=== PATIENT | male | born 1955 | race Caucasian/White ===

== ENCOUNTER → 2016-08-22 | Outpatient (CLI) | payer BC ==
[~2016-08-22] MED LIST: ACET-1256 PO; ASPI81TA28 PO; CO Q10 PO; CRG125 PO; DICL-201 PO
[2016-08-22 13:41] LABS: ALT/SGPT 51 U/L (12-78); AST/SGOT 26 U/L (15-37); BLOOD UREA NITROGEN 14 mg/dl (7-18); CALCIUM 8.9 mg/dl (8.5-10.1); CARBON DIOXIDE 24 mmol/L (21-32); CHLORIDE 105 mmol/L (98-107); CHOLESTEROL 235 mg/dl (0-200); CREATININE 0.94 mg/dl (0.60-1.40); GLUCOSE 109 mg/dl (70-99); POTASSIUM 4.1 mmol/L (3.5-5.1); SODIUM 139 mmol/L (136-145); TRIGLYCERIDES 186 mg/dl (0-150); VERY LOW DENSITY LIPOPROT CALC 37 mg/dl
[2016-08-22 13:43] LABS: ESTIMATED AVERAGE GLUCOSE 111 mg/dl; HA1C FLAG Normal (Normal)
[2016-08-22 13:45] LABS: HDL CHOLESTEROL 39 mg/dl; LDL CHOLESTEROL CALCULATED 159 mg/dl
== END | disposition home or self-care (01) ==
LOC: C.LABMFLN 09:09
PROVIDERS: ATTEND Family Medicine
DX: E78.00 Pure hypercholesterolemia, unspecified (principal); I10 Essential (primary) hypertension; R73.03 Prediabetes

== ENCOUNTER → 2016-08-31 | Outpatient (CLI) | payer BC | END | disposition home or self-care (01) | LOC: C.LABMFLN 10:43 | PROVIDERS: ATTEND Family Medicine | DX: R39.15 Urgency of urination (principal) ==

== ENCOUNTER → 2016-11-22 | Outpatient (CLI) | payer BC ==
[2016-11-22 13:39] LABS: BASO % 0.7 %; BASO ABS # 0.03 K/uL (0-0.2); COMPLETE YES; HEMATOCRIT 41.9 % (42-52); IG% 0.2 %; LYMPH % 37.5 %; LYMPH ABS # 1.72 K/uL (1.2-3.4); MEAN CELL VOLUME 84.3 fL (80-100); MEAN CORPUSCULAR HEMOGLOBIN 28.6 pg (25-34); MEAN CORPUSCULAR HGB CONC 33.9 g/dl (32-36); MEAN PLATELET VOLUME 8.7 fL (7.4-10.4); MONO % 8.3 %; NEUT % 43.3 %; PLATELET COUNT 177 K/uL (130-400); RED BLOOD COUNT 4.97 M/uL (4.7-6.1); WHITE BLOOD COUNT 4.59 K/uL (4.8-10.8)
== END | disposition home or self-care (01) ==
LOC: C.LABMFLN 11:14
PROVIDERS: ATTEND Family Medicine
DX: R06.09 Other forms of dyspnea (principal)

== ENCOUNTER → 2016-12-11 | Outpatient (CLI) | payer BC ==
[2016-12-11 14:45] LABS: ESTIMATED AVERAGE GLUCOSE 108 mg/dl; HA1C FLAG Normal (Normal)
[2016-12-11 15:18] LABS: ALT/SGPT 46 U/L (12-78); BLOOD UREA NITROGEN 14 mg/dl (7-18); CALCIUM 9.1 mg/dl (8.5-10.1); CARBON DIOXIDE 27 mmol/L (21-32); CHLORIDE 104 mmol/L (98-107); CHOLESTEROL 226 mg/dl (0-200); GLUCOSE 107 mg/dl (70-99); POTASSIUM 3.9 mmol/L (3.5-5.1); SODIUM 139 mmol/L (136-145)
[2016-12-11 15:19] LABS: BUN/CREATININE RATIO 14.7 (10-20); CREATININE 0.96 mg/dl (0.60-1.40)
[2016-12-11 15:26] LABS: ALKALINE PHOSPHATASE 66 U/L (45-117); AST/SGOT 24 U/L (15-37); CHOLESTEROL/HDL RATIO 6.3; HDL CHOLESTEROL 36 mg/dl; LDL CHOLESTEROL CALCULATED 127 mg/dl; TRIGLYCERIDES 314 mg/dl (0-150); VERY LOW DENSITY LIPOPROT CALC 63 mg/dl
== END | disposition home or self-care (01) ==
LOC: C.LABMFLN 08:36
PROVIDERS: ATTEND Family Medicine
DX: I10 Essential (primary) hypertension (principal); E78.00 Pure hypercholesterolemia, unspecified; R73.03 Prediabetes

== ENCOUNTER → 2016-12-25 | Outpatient (CLI) | payer BC ==
[2016-12-25 14:58] LABS: LYME DISEASE AB IGG NEG (NEG); LYME DISEASE AB IGM NEG (NEG)
[2016-12-30 03:14] LABS: 18KDIGG BAND NONREACTIVE (NONREACTIVE); 23KDIGG BAND NONREACTIVE (NONREACTIVE); 23KDIGM BAND NONREACTIVE (NONREACTIVE); 28KDIGG BAND NONREACTIVE (NONREACTIVE); 30KDIGG BAND NONREACTIVE (NONREACTIVE); 39KDIGG BAND NONREACTIVE (NONREACTIVE); 39KDIGM BAND NONREACTIVE (NONREACTIVE); 41KDIGG BAND REACTIVE (NONREACTIVE); 41KDIGM BAND NONREACTIVE (NONREACTIVE); 45KDIGG BAND NONREACTIVE (NONREACTIVE); 58KDIGG BAND NONREACTIVE (NONREACTIVE); 66KDIGG BAND REACTIVE (NONREACTIVE); 93KDIGG BAND NONREACTIVE (NONREACTIVE)
== END | disposition home or self-care (01) ==
LOC: C.LABMFLN 09:44
PROVIDERS: ATTEND Family Medicine
DX: T14.8 Other injury of unspecified body region (principal); W57.XXXA Bitten or stung by nonvenomous insect and other nonvenomous arthropods, initial encounter

== ENCOUNTER → 2017-02-07 | Outpatient (CLI) | payer BC ==
[~2017-02-07] MED LIST changes: +PERFLUTREN LIPID MICROSPHERE (DEFINITY) IV ONE
--- NOTE | 2017-02-07 17:10 | ECHOCARDIOGRAM REPORT ---
*NOTICE TO RECEIVING [employer] This information is strictly Confidential and protected under [place] law. [place] law prohibits you from making any further disclosure of this information unless further disclosure is expressly permitted by the written consent of the person to whom it pertains or is authorized by law. A general authorization for the release of medical or other information is not sufficient for this purpose. Hospital accepts no responsibility if the information is made available to any other person, INCLUDING THE PATIENT. Interpretation Summary * Name: NANCY PEÑA Study Date: 02/07/2017 12:47 PM BP: 179/83 mmHg * Patient Location: [facility] HR: 68 * : 1955 (M/d/yyyy) Gender: Male Height: 70 in * Age: 61 yrs Ethnicity: CA Weight: 325 lb * Ordering Physician: Nancy Walton * Referring Physician: Nancy Walton * Performed By: Jose Raul Granado RCS * * Reason For Study: Dyspnea, Eval for Pulmonary Hypertension * BSA: 2.6 m2 * -- Conclusions -- * 1. Normal LV size and wall thickness. * 2. Normal LV systolic function. LVEF 55-60%. * 3. Normal RV size and function. * 4. No significant valvular pathology. * 5. Trace TR. Normal estimated PA and RA pressures. * 6. No prior studies for comparison. Procedure Details * A complete two-dimensional transthoracic echocardiogram was performed (2D, M-mode, Doppler and color flow Doppler). * A contrast injection of Definity was performed to improve assessment of LV function. * Contrast was injected into an intravenous site in the right arm. * One vial of Definity ultrasound contrast was diluted in normal saline to a total volume of 10 ml. A total of '2' ml of solution was administered during imaging. * Lot # [id number] of Definity utilized for procedure. * Expiration date [id number]. * The attending nurse who injected the contrast agent was Zuleyka Trivedi RN. Left Ventricle * The left ventricle is grossly normal size. * There is normal left ventricular wall thickness. * Ejection Fraction = 55-60%. Right Ventricle * The right ventricle is grossly normal size. * The right ventricular systolic function is normal as assessed by tricuspid annular plane systolic excursion (TAPSE) (normal >1.5 cm). Atria * The left atrial size is normal. * Right atrial size is normal. * No ASD detected; PFO is not assessed. Mitral Valve * The mitral valve is grossly normal. * There is mild mitral annular calcification. * There is no mitral valve stenosis. * Significant mitral regurgitation is absent. Tricuspid Valve * The tricuspid valve is not well visualized. * There is trace tricuspid regurgitation. * Right ventricular systolic pressure is normal. Aortic Valve * The aortic valve opens well. * No hemodynamically significant valvular aortic stenosis. * There is no significant aortic regurgitation. Pulmonic Valve * The pulmonary valve is inadequately visualized, but the Doppler data is adequate for interpretation. * There is no pulmonic valvular stenosis. * There is no significant pulmonary regurgitation. Great Vessels * The aortic root and proximal ascending aorta are normal sized. Pericardium/Pleural * There is no pericardial effusion. Great Vessels * Normal inferior vena cava size and collapsability with sniff indicates a normal right atrial pressure of 3 mmHg MMode 2D Measurements and Calculations IVSd 0.99 cm IVSs 1.4 cm LVIDd 4.6 cm LVIDs 3.1 cm LVPWd 10 cm LVPWs 1.4 cm IVS/LVPW 0.99 FS 32.7 % EDV(Teich) 99.7 ml ESV(Teich) 38.8 ml EF(Teich) 61.1 % EDV(cubed) 100.3 ml ESV(cubed) 30.6 ml EF(cubed) 69.5 % % IVS thick 42.9 % % LVPW thick 42.5 % LV mass(C)d 160.1 grams LV mass(C)dI 62.4 grams/m\S\2 LV mass(C)s 151.7 grams LV mass(C)sI 59.1 grams/m\S\2 CO(Teich) 3.8 l/min CI(Teich) 1.5 l/min/m\S\2 SV(Teich) 60.9 ml SI(Teich) 23.7 ml/m\S\2 CO(cubed) 4.4 l/min CI(cubed) 1.7 l/min/m\S\2 SV(cubed) 69.7 ml SI(cubed) 27.2 ml/m\S\2 Ao root diam 3.5 cm Ao root area 9.4 cm\S\2 ACS 1.5 cm LA dimension 3.9 cm asc Aorta Diam 3.4 cm LA/Ao 1.1 LVAd ap4 43.5 cm\S\2 LVLd ap4 9.6 cm EDV(MOD-sp4) 161.0 ml LVAs ap4 22.5 cm\S\2 LVLs ap4 7.4 cm ESV(MOD-sp4) 54.0 ml EF(MOD-sp4) 66.5 % LVAd ap2 39.9 cm\S\2 LVLd ap2 9.4 cm EDV(MOD-sp2) 137.0 ml LVAs ap2 23.8 cm\S\2 LVLs ap2 7.9 cm ESV(MOD-sp2) 57.0 ml EF(MOD-sp2) 58.4 % CO(MOD-sp4) 6.7 l/min CI(MOD-sp4) 2.6 l/min/m\S\2 SV(MOD-sp4) 107.0 ml SI(MOD-sp4) 41.7 ml/m\S\2 CO(MOD-sp2) 5.0 l/min CI(MOD-sp2) 2.0 l/min/m\S\2 SV(MOD-sp2) 80.0 ml SI(MOD-sp2) 31.2 ml/m\S\2 Doppler Measurements and Calculations MV E max opal 96.5 cm/sec MV A max opal 117.9 cm/sec MV E/A 0.82 MV P1/2t max opal 112.0 cm/sec MV P1/2t 99.3 msec MVA(P1/2t) 2.2 cm\S\2 MV dec slope 330.4 cm/sec\S\2 MV dec time 0.25 sec Ao V2 max 191.1 cm/sec Ao max PG 14.6 mmHg Ao max PG (full) 10.7 mmHg LV V1 max PG 3.9 mmHg LV V1 max 98.7 cm/sec PA V2 max 97.9 cm/sec PA max PG 3.9 mmHg TR max opal 171.2 cm/sec
== END | disposition home or self-care (01) ==
LOC: C.CPL 12:28
PROVIDERS: ATTEND Internal Medicine Pulmonary Disease
DX: G47.33 Obstructive sleep apnea (adult) (pediatric) (principal); I10 Essential (primary) hypertension; R06.09 Other forms of dyspnea

== ENCOUNTER → 2017-02-26 | Outpatient (CLI) | payer BC ==
[~2017-02-26] MED LIST changes: -PERFLUTREN LIPID MICROSPHERE (DEFINITY) IV ONE
[2017-02-26 18:07] LABS: BLOOD UREA NITROGEN 15 mg/dl (7-18)
== END | disposition home or self-care (01) ==
LOC: C.LABMFLN 11:40
PROVIDERS: ATTEND Physician Assistant
DX: R25.1 Tremor, unspecified (principal)

== ENCOUNTER → 2017-03-01 | Outpatient (CLI) | payer BC ==
[~2017-03-01] MED LIST changes: +GADAVIST IV PRN
--- NOTE | 2017-03-01 11:58 | DIAGNOSTIC IMAGING REPORT ---
ORBIT RADIOGRAPHS 3 VIEWS HISTORY: pre-MRI screening. COMPARISON: None. FINDINGS: There are no radiopaque foreign bodies identified within the orbits. IMPRESSION: No radiopaque foreign bodies identified within the orbits. Electronically signed by: Jason Tang M.D. 03/01/2017 11:56 AM Dictated Date/Time: 03/01/2017 11:56 AM
--- NOTE | 2017-03-01 14:30 | DIAGNOSTIC IMAGING REPORT ---
Brain MRI WITH AND WITHOUT CONTRAST HISTORY: Trauma. TECHNIQUE: Multiplanar multisequence MRI of the brain was performed both before and after the intravenous administration of contrast. COMPARISON STUDY: None. FINDINGS: There is no mass, hematoma, midline shift, or acute infarct. The paranasal sinuses are clear. The mastoid air cells are clear. The ventricles and sulci demonstrate mild age-related involutional changes. A few scattered foci of T2 hyperintensity seen within the periventricular and subcortical white matter are nonspecific. The major vascular flow voids at the skull base are well-maintained. Incidental note is made of a 5 mm pineal gland cyst. No abnormal enhancement. IMPRESSION: No acute intracranial abnormality. Scattered foci of T2 hyperintensity seen within the periventricular and subcortical white matter are nonspecific but favor mild microvascular ischemic change. A demyelinating disease, Lyme disease, or vasculitis could also have a similar appearance. Electronically signed by: Srinivas Chauhan M.D. 03/01/2017 2:28 PM Dictated Date/Time: 03/01/2017 2:19 PM
== END | disposition home or self-care (01) ==
LOC: C.MRIBC 11:20
PROVIDERS: ATTEND Physician Assistant
DX: R25.1 Tremor, unspecified (principal); Z87.828 Personal history of other (healed) physical injury and trauma

== ENCOUNTER → 2017-03-01 | Outpatient (CLI) | payer BC ==
[~2017-03-01] MED LIST changes: -GADAVIST IV PRN
--- NOTE | 2017-03-01 14:22 | DIAGNOSTIC IMAGING REPORT ---
MRI OF THE LUMBAR SPINE WITHOUT CONTRAST CLINICAL HISTORY: Severe lower back pain radiating into left hip. Lumbar radiculopathy. COMPARISON STUDY: No previous studies for comparison. TECHNIQUE: Utilizing a 1.5 Courtney magnet and dedicated coil, multiplanar, multiecho imaging of the lumbar spine was performed without IV contrast. FINDINGS: For purposes of numbering on this exam, the L5-S1 disc space is assigned to axial image 23 of 25. Alignment of the lumbar spine is anatomic. Vertebral body heights are maintained. No intracanalicular mass or fluid collection is present. Conus terminates at the upper L2 level. Note is made of marked marrow edema within the inferior endplate of L2 and superior endplate of L3. There is fluid signal within the left aspect of the L2-L3 intervertebral disc. There is no prevertebral edema. Paravertebral soft tissues appear normal. There is asymmetric atrophy of the right psoas. L1-2: The central canal and neural foramen are patent. L2-3: There is disc space narrowing with disc bulge, ligamentous hypertrophy and facet arthrosis. There is mild narrowing of the central canal and moderate narrowing of the left neural foramen. L3-4: There is disc space narrowing with disc bulge, ligamentous hypertrophy and facet arthrosis. There is moderate narrowing of the central canal and left neural foramen with mild narrowing of the right neural foramen. L4-5: There is disc bulge with ligamentous hypertrophy and facet arthrosis. There is mild narrowing of the central canal, lateral recesses and neural foramen. L5-S1: There is facet arthrosis. Central canal is patent. There is moderate right and mild left neural foraminal stenosis. IMPRESSION: 1. Marked marrow signal abnormality centered on the left aspect of the L2-L3 intervertebral disc with small amount of fluid within the disc space. No prevertebral edema. A degenerative process is favored although early discitis/osteomyelitis could appear similar. This could be correlated with clinical evidence for infectious process. A short-term follow-up MRI of the lumbar spine could be obtained. No epidural fluid collection. No paravertebral infiltration or fluid collection. 2. Moderate multilevel degenerative disc disease and severe multilevel facet arthrosis. Moderate central canal stenosis at L3-L4 with moderate multilevel neural foraminal narrowing, as described above. Electronically signed by: Jason Tang M.D. 03/01/2017 2:21 PM Dictated Date/Time: 03/01/2017 2:07 PM
== END | disposition home or self-care (01) ==
LOC: C.MRIBC 11:25
PROVIDERS: ATTEND Pain Medicine Interventional Pain Medicine
DX: M51.16 Intervertebral disc disorders with radiculopathy, lumbar region (principal); M51.17 Intervertebral disc disorders with radiculopathy, lumbosacral region

== ENCOUNTER → 2017-03-05 | Outpatient (CLI) | payer BC ==
--- NOTE | 2017-03-06 06:15 | PAP/PSG TECHNICIAN REPORT ---
[facility] Application Integration Engineer Polysomnogram Report Study name: None Report date: 03/06/2017 Study date: 03/05/2017 Referring Physician: DR. COSTELLO Name: NANCY PEÑA Interpreting Physician: Uche Novoa M.D. Date of : 1955 Application Integration Engineer: JOSE ARMANDO Lord. Sex: Male Age: 61 StudyType: PSG PAP Weight: 329 lbs Height: 61 years, Height 5' 8.5" BMI: 49.29 Medications: METOPROLOL TARTRATE 50 MG, CIALIS 5 MG, COENZYME Q10 100 MG, TAMSULOSIN HCL 0.4 MG, XARELTO 20 MG, ACETAMINOPHEN 500 MG Patient History PATIENT HAS HISTORY OF YARY AND LAST HAD A SLEEP STUDY DONE IN 2014. HE HAS BEEN HAVING ISSUES WITH DAYTIME SLEEPINESS AND FATIGUE. HE IS HERE TODAY FOR AN UPDATE ON HIS PRESSURE. ESS = 8 RM 7 Parameters Monitored NPSG: E1-M2, E2-M1, Fp1-M2, Fp2-M1, F3-M2, F4-M2, F4-M1, C3-M2, C4-M2, C4-M1, O1-M2, O2-M2, O2-M1, T3-M2, T4-M1, P3-M2, P4-M1, CHIN1, CHIN2, HR, EKG, Legs, PFLOW, SNOR, FLOW, CFLOW, Tidal Volume, THOR, ABDO, SpO2, PLTH, CPRESS, ETCO2 Wave, ETCO2, pH Sleep Architecture Sleep Stages Time at Lights Off 10:30:19 PM STAGES Time (min.) TST (%) Time at Lights On 5:31:49 AM Wake 85.5 -- Total Recording Time (TRT) 422.00 min. N1 36.5 11 Total Sleep Period (TSP) 408.0 min. N2 244.0 73 Total Sleep Time (TST) 336.0min. N3 4.0 1 Awake Time 85.5 min. REM 51.5 15 Wake after Sleep Onset 73.0 min. Sleep Efficiency (SE) 80 % Sleep Onset Latency (NIA) 12.5 min. Number of Stage 1 Shifts None Awakenings 35 Stage Changes 116 Number of REM periods 3 REM 51.5 15 REM Latency 82.5 min. NREM 284.5 85 Body Position Analysis Supine Right Left Side Prone Vertical Total Sleep Time (min.) 421.5 0.0 0.0 0.00 0.0 0.0 Total Sleep Time (%) 100% 0% 0% 0 0% N/A% Total Sleep Time REM (min.) 51.5 0.0 0.0 None 0.0 0.0 Total Sleep Time NREM (min.) 284.5 0.0 0.0 None 0.0 0.0 Intermittent Wake (min.) 85.5 0.0 0.0 None 0.0 0.0 Total Sleep Period (%) 100% None None None None None Arousals Myoclonus (PLM) * Events Count Index Events Count Index Spontaneous 46 8 Events Awake (PLMW) 8 5.6 Respiratory 12 2.1 Events Asleep w/ Arousal (PLMA) 1 0.2 PLM 1 0 Events Asleep w/o Arousal (PLMS) 20 3.6 Snoring 8 1 Total Asleep 21 3.8 Total 66 12 Total 29 4 Respiratory Analysis * CA OA MA CH H RERA Total Count 0 0 0 0 19 14 19 Index 0.0 0.0 0.0 0 3.4 3 5.9 Mean Duration 0.0 0.0 0.0 0.00 18.9 15.3 17.4 Longest Duration 0.0 0.0 0.0 0.00 0.0 18.4 30.3 Respiratory Event Summary Total Supine ~Supine Right Left Prone REM NREM Apneas Count 0 0 N/A N/A N/A N/A 0 0 Index 0.0 0 N/A N/A N/A N/A 0 0 Hypopneas (4% Desat) Count 19 19 N/A N/A N/A N/A 11 8 Index 3.4 3.4 N/A N/A N/A N/A 12.8 1.7 Apneas & All Hypopneas Count 19 19 N/A N/A N/A N/A 11 8 Index 3.4 3 N/A N/A N/A N/A 12.8 1.7 Respiratory Events (Rail Switchman+All Hyp+RERA) Count 19 33 N/A N/A N/A N/A 11 8 Index 5.9 6 N/A N/A N/A N/A 12.8 4.6 Respiratory Related Arousal Count 12 33 N/A N/A N/A N/A 0 12 Index 2.1 2 N/A N/A N/A N/A 0 3 Snoring Analysis Supine Right Left Prone REM NREM Total Snore duration 2.3 min Snores count 101 N/A N/A N/A 2 99 101 Snore mean duration 1.3 Sec Snores index 18 N/A N/A N/A 2.3 20.9 18.0 TST with snoring (%) 0.7% Desaturation Event Summary: Minimum %SpO2 Event Count Mean/Min/Max Duration(sec.) Desaturation Index % Time In Bed > 90 23 31.5 / 10.8 / 64.1 3.5 93.7 86 - 90 1 27.6 / 27.6 / 27.6 2.3 6.2 81 - 85 0 N/A 0.0 0.1 76 - 80 0 N/A 0.0 0.0 71 - 75 0 N/A 0.0 0.0 66 - 70 0 N/A 0.0 0.0 61 - 65 0 N/A 0.0 0.0 56 - 60 0 N/A 0.0 0.0 51 - 55 0 N/A 0.0 0.0 < 50 0 N/A 0.0 0.0 Total REM NREM Awake <50% 0.0 min. 0.0 min. 0.0 min. 0.0 min. 51 - 60% 0.0 min. 0.0 min. 0.0 min. 0.0 min. 61 - 70% 0.0 min. 0.0 min. 0.0 min. 0.0 min. 71 - 80% 0.0 min. 0.0 min. 0.0 min. 0.0 min. 81 - 90% 26.7 min. 8.1 min. 16.6 min. 2.1 min. 91 - 100% 394.7 min. 43.4 min. 267.9 min. 83.3 min. Average 92 92 92 93 Minimum SpO2 83 83 87 89 Desaturation Event Index 3.4 12.8 1.9 2.8 # Desat. Events below 89% 8 6 2 N/A Time(%) with Saturation below 89% 0.7 0.6 0.1 0.0 Time(min.) with Saturation below 89% 2.8 2.5 0.3 0.0 Time (mins) REM (mins) NREM (mins) % of TST SpO2 Below 90% 17 8 N9 1.7 SpO2 Below 88% 5 0 0 0 Heart Rate Analysis Min (bpm) Max (bpm) Average (bpm) Awake 51 85 61 NREM 50 92 58 REM 53 67 60 Overall 50 92 58 Supplemental O2 Values Minimum O2 level: None Value Start Time End Time Application Integration Engineer Comments Mr. Peña slept in the supine positions. PVC's noted. Leg movements noted. No bruxism noted. CPAP was initiated at +5 CMH2O and up-titrated to an optimal level of +13 CMH2O, which nearly eliminated all respiratory events and snoring. The patient brought in hiw own mask that was used during titration Mr. Peña awoke to use the restroom 0 times during the night. Mr. Peña stated I slept as well as I do when I am in my own bed. The final report will be interpreted and signed by a sleep physician. The completed physician report will then be placed in the patient medical record. Therapy Event: Therapy (cm H20) 5 7 8 9 10 11 12 13 Total Time at Pressure (min.) 0.8 26.6 9.0 64.8 3.8 21.2 48.4 246.9 TST at Pressure (min.) 0.0 10.3 9.0 57.8 3.8 17.2 45.9 191.9 # Periods 1 1 1 1 1 1 1 1 Sleep Onset (min.) N/A 11.7 0.0 0.0 0.0 0.0 0.0 0.0 REM Onset (min.) N/A N/A N/A 58.6 0.0 0.0 N/A 40.9 Sleep Efficiency % 0 38 100 89 100 81 94 77 Wakefulness (%) 100.0 61.1 0.0 10.8 0.0 18.9 5.2 22.3 Wakefulness (min.) 0.8 16.2 0.0 7.0 0.0 4.0 2.5 55.0 NREM 1 (%) 0.0 13.2 5.5 1.5 0.0 7.1 2.1 11.7 NREM 1 (min.) 0.0 3.5 0.5 1.0 0.0 1.5 1.0 29.0 NREM 2 (%) 0.0 25.7 94.5 72.0 0.0 31.4 92.8 52.8 NREM 2 (min.) 0.0 6.8 8.5 46.6 0.0 6.7 44.9 130.4 NREM 3 (%) 0.0 0.0 0.0 6.2 0.0 0.0 0.0 0.0 NREM 3 (min.) 0.0 0.0 0.0 4.0 0.0 0.0 0.0 0.0 REM (%) 0.0 0.0 0.0 9.5 100.0 42.6 0.0 13.2 REM (min.) 0.0 0.0 0.0 6.2 3.8 9.0 0.0 32.5 # Arousals N/A 6 6 4 0 0 4 46 Arousal Index N/A 34.8 39.9 4.2 0.0 0.0 5.2 14.4 # Snore N/A 4 3 21 1 1 18 53 Snore Index N/A 23.2 19.9 21.8 15.6 3.5 23.5 16.6 AHI N/A 17.4 13.3 5.2 46.8 10.5 0.0 0.9 AHI Supine N/A 17.4 13.3 5.2 46.8 10.5 0.0 0.9 AHI Non-Supine N/A N/A N/A N/A N/A N/A N/A N/A NREM AHI N/A 17.4 13.3 2.3 N/A 0.0 0.0 0.4 REM AHI N/A N/A N/A 29.3 46.8 20.0 N/A 3.7 RDI N/A 34.8 19.9 5.2 46.8 10.5 5.2 2.8 # Obstructive N/A 0 0 0 0 0 0 0 # Central Ap N/A 0 0 0 0 0 0 0 # Mixed N/A 0 0 0 0 0 0 0 # Hypopneas N/A 3 2 5 3 3 0 3 RERAS N/A 3 1 0 0 0 4 6 Total Respiratory Events N/A 6 3 5 3 3 4 9 Time Below SpO2 89.00% (min.) 0.0 0.0 0.0 1.9 0.7 0.2 0.1 0.0 Mean NREM SpO2 (%) N/A 92 92 92 N/A 92 92 93 Mean REM SpO2 (%) N/A N/A N/A 90 92 92 N/A 92 Mean Sleep SpO2 (%) N/A 92 92 91 92 92 92 93 Min NREM SpO2 (%) N/A 89 89 87 N/A 90 88 90 Min REM SpO2 (%) N/A N/A N/A 83 87 87 N/A 89 Position Supine (min.) 0.0 10.3 9.0 57.8 3.8 17.2 45.9 191.9 Position Non-supine (min.) 0.0 0.0 0.0 0.0 0.0 0.0 0.0 0.0 LM Index Sleep N/A 0.0 0.0 2.1 0.0 3.5 2.6 5.0 LM Index NREM N/A 0.0 0.0 1.2 N/A 7.4 2.6 1.1 LM Index REM N/A N/A N/A 9.8 0.0 0.0 N/A 24.0 Mean Heart Rate (bpm) N/A 65 64 63 62 60 58 56 Min Heart Rate (bpm) N/A 60 57 56 59 57 51 50
--- NOTE | 2017-03-07 11:00 | POLYSOMNOGRAPH REPORT ---
CLINICAL DATA: A 61-year-old male with BMI of 49.[address] Walton and Dr. Ramirez for an updated CPAP titration study. He has a history of sleep apnea and was last tested in 2014. He is having issues with daytime sleepiness and fatigue. His [place] sleepiness score was 8/24. SLEEP ARCHITECTURE: Total sleep period was 408 minutes. Total sleep time was 336 minutes, divided between 284.5 minutes of non-REM sleep and 51.5 minutes of REM sleep. Sleep onset latency was 12.5 minutes. REM latency was 82.5 minutes. Sleep efficiency was 80%. Wake after sleep onset was 73 minutes. Sleep consisted of stage N1 11%, N2 73%, N3 1%, and REM 15%. AROUSAL DATA: 66 arousals recorded for an index of 12 per hour, 46 were spontaneous. PERIODIC LIMB MOVEMENTS DATA: 21 limb movements during sleep were noted for an index of 3.8 per hour with arousals 0.2 per hour. RESPIRATORY DATA: The AHI was 3.4. There were 19 hypopneic episodes with a mean duration of 18.9 seconds. OXIMETRY DATA: Transient hypoxemia was seen. Oxygen shea was 83% during REM. Mean saturation was 92%. Time below 88% was 5 minutes. EKG: Heart rates ranged from 52-92 beats per minute. PVCs were noted. COMMERCIAL PROPERTY ADMINISTRATOR'S COMMENTS AND TREATMENT SUMMARY: The patient slept supine. CPAP was started and was titrated incrementally up to 13 cm water pressure. At his final pressure setting, patient slept for 192 minutes with an AHI of 2.8. IMPRESSION: Obstructive sleep apnea corrected with CPAP at 13 cm of water pressure. RECOMMENDATIONS: The patient's CPAP should be adjusted at 13 cm of water pressure. He should be seen back in followup within 90 days after this pressure change to document efficacy and compliance. ELIO
== END | disposition home or self-care (01) ==
LOC: C.NEUR 21:00
PROVIDERS: ATTEND Internal Medicine Pulmonary Disease
DX: I10 Essential (primary) hypertension (principal); R06.09 Other forms of dyspnea; G47.33 Obstructive sleep apnea (adult) (pediatric)

== ENCOUNTER → 2017-03-22 | Outpatient (CLI) | payer BC ==
--- NOTE | 2017-03-26 17:46 | PULMONARY FUNCTION TEST ---
Pre-bronchodilator spirometry is well within normal limits. There was no significant response to bronchodilator, but this should not preclude a therapeutic trial if clinically warranted. Lung volumes were essentially within normal limits as was the diffusion capacity. Clinical correlation is needed.
== END | disposition home or self-care (01) ==
LOC: C.RC 09:11
PROVIDERS: ATTEND Internal Medicine Pulmonary Disease
DX: G47.33 Obstructive sleep apnea (adult) (pediatric) (principal)

== ENCOUNTER → 2017-04-12 | Outpatient (CLI) | payer BC ==
[2017-04-12 18:10] LABS: BLOOD UREA NITROGEN 17 mg/dl (7-18); CREATININE 1.01 mg/dl (0.60-1.40)
== END | disposition home or self-care (01) ==
LOC: C.LABMFLN 13:04
PROVIDERS: ATTEND Pain Medicine Interventional Pain Medicine
DX: Z01.812 Encounter for preprocedural laboratory examination (principal)

== ENCOUNTER → 2017-05-03 | Outpatient (CLI) | payer BC ==
[2017-05-03 17:55] LABS: BASO % 0.5 %; BASO ABS # 0.02 K/uL (0-0.2); COMPLETE YES; EOS % 9.3 %; HEMATOCRIT 42.2 % (42-52); IG% 0.5 %; LYMPH % 37.4 %; LYMPH ABS # 1.57 K/uL (1.2-3.4); MEAN CELL VOLUME 82.4 fL (80-100); MEAN CORPUSCULAR HEMOGLOBIN 28.3 pg (25-34); MEAN CORPUSCULAR HGB CONC 34.4 g/dl (32-36); MEAN PLATELET VOLUME 8.9 fL (7.4-10.4); MONO % 7.9 %; NEUT % 44.4 %; PLATELET COUNT 165 K/uL (130-400); RED BLOOD COUNT 5.12 M/uL (4.7-6.1)
== END | disposition home or self-care (01) ==
LOC: C.LABMFLN 10:44
PROVIDERS: ATTEND Family Medicine
DX: M54.9 Dorsalgia, unspecified (principal)

== ENCOUNTER → 2017-07-20 | Outpatient (CLI) | payer BC | END | disposition home or self-care (01) | LOC: C.PATHSPEC 17:16 | PROVIDERS: ATTEND Orthopaedic Surgery | DX: L98.0 Pyogenic granuloma (principal) ==